=== PATIENT | female | born 1965 ===

== ENCOUNTER 2019-10-04 13:05 | Emergency (ER) | payer OTHER ==
[~2019-10-04] VITALS: Ht 149.9 cm; Wt 81.6 kg
[~2019-10-04 13:05] MED LIST: AVAPRO300 MG
[2019-10-04] MEDS ORDERED: COZAAR100 MG (13:20)
== END 2019-10-04 16:12 | disposition home or self-care (01) ==
LOC: ER 13:05
DX: R10.11 Right upper quadrant pain (principal)